=== PATIENT | male | born 1960 | race Caucasian/White ===

== ENCOUNTER 2022-01-01 08:56 | Outpatient (CLI) | payer OTHER, SELFPAY ==
[2022-01-01 14:18] LABS: Chloride* 101 mmol/L (96-114); Potassium* 4.5 mmol/L (3.6-5.1); Sodium* 138 mmol/L (135-149)
[2022-01-01 14:20] LABS: Cholesterol* 191 mg/dL (90-199)
[2022-01-01 14:21] LABS: Blood Urea Nitrogen* 20 mg/dL (7-30); Carbon Dioxide* 29 mmol/L (20-32); Creatinine* 0.8 mg/dL (0.5-1.5); Estimated Glomerular Filt Rate 101 ml/min; Glucose* 109 mg/dL (60-115); Triglycerides* 66 mg/dL (40-149)
[2022-01-01 14:22] LABS: Calcium* 9.2 mg/dL (8.4-10.6); HDL Cholesterol* 47 mg/dL (>=40); LDL Cholesterol Calculated 131 mg/dL (<100)
[2022-01-01 15:44] LABS: PSA Screen* 1.04 ng/mL (0.10-4.00)
== END 2022-01-01 08:57 | disposition home or self-care (01) ==
PROVIDERS: PCP Emergency Medicine; Visit Provider Emergency Medicine
DX: Z00.00 Encounter for general adult medical examination without abnormal findings (principal); R73.03 Prediabetes; R05.9 Cough, unspecified; Z12.5 Encounter for screening for malignant neoplasm of prostate; Z13.6 Encounter for screening for cardiovascular disorders
CPT/HCPCS: 80048; 80061; 84153

== ENCOUNTER 2022-02-09 09:23 | Outpatient (CLI) | payer OTHER, SELFPAY ==
--- NOTE | 2022-02-09 10:55 | W.ANESCHARGE ---
Anesthesia Charges Start Date/Time Anesthesia Start Date: 02/09/22 Anesthesia Start Time: 10:10 Stop Date/Time Anesthesia Stop Date: 02/09/22 Anesthesia Stop Time: 10:50 Summary Emergency: No
--- NOTE | 2022-02-09 10:56 | W.ANESCHARGE ---
Anesthesia Charges Start Date/Time Anesthesia Start Date: 02/09/22 Anesthesia Start Time: 10:10 Stop Date/Time Anesthesia Stop Date: 02/09/22 Anesthesia Stop Time: 10:50 Summary Emergency: No
== END 2022-02-09 09:24 | disposition home or self-care (01) ==
LOC: OP CLINIC 09:24
PROVIDERS: PCP Emergency Medicine; Visit Provider Surgery
DX: Z12.11 Encounter for screening for malignant neoplasm of colon (principal); K63.5 Polyp of colon; K57.30 Diverticulosis of large intestine without perforation or abscess without bleeding
CPT/HCPCS: 00811; 45385; 88305; J2704

== ENCOUNTER 2022-05-27 15:12 | Outpatient (RCR) | payer OTHER, SELFPAY | END 2022-12-30 14:02 | disposition home or self-care (01) | PROVIDERS: PCP Emergency Medicine; Visit Provider Physician Assistant Surgical | DX: M70.61 Trochanteric bursitis, right hip (principal); Z51.89 Encounter for other specified aftercare | CPT/HCPCS: 97110; 97161 ==

== ENCOUNTER 2023-03-17 16:15 | Outpatient (RCR) | payer OTHER, SELFPAY | END 2023-04-26 17:20 | disposition home or self-care (01) | PROVIDERS: PCP Emergency Medicine; Visit Provider Orthopaedic Surgery | DX: M67.912 Unspecified disorder of synovium and tendon, left shoulder (principal); S42.022A Displaced fracture of shaft of left clavicle, initial encounter for closed fracture; Z51.89 Encounter for other specified aftercare | CPT/HCPCS: 97110; 97140; 97162 ==

== ENCOUNTER 2023-05-10 13:11 | Outpatient (CLI) | payer OTHER, SELFPAY | END 2023-05-10 13:12 | disposition home or self-care (01) | LOC: FRMREF 13:13 | PROVIDERS: PCP Emergency Medicine; Visit Provider Family Medicine | DX: Z01.818 Encounter for other preprocedural examination (principal) | CPT/HCPCS: 80053 ==

== ENCOUNTER 2023-05-14 07:08 | Day surgery (SDC) | payer OTHER, SELFPAY ==
[2023-05-14] VITALS (16 sets, daily range): BP systolic 122–157; BP diastolic 66–108; PULSE 56–99; RESP 14–20; TEMP 36.1–37.1; O2SAT 90–95; BMI 33.2
[2023-05-14] MEDS: MIDAZOLAM HCL 1 MG/ML inj IVP (07:34)
--- NOTE | 2023-05-14 07:39 | W.PM.H&PU ---
History & Physical Update History & Physical Update H&P Reviewed and patient assessed: No changes noted
[2023-05-14] MEDS: LACTATED RINGERS 1000 ML 1,000 ML 100 ML IV ×2 (08:10→11:35)
[2023-05-14] MEDS: SODIUM CHLORIDE 0.9 % (FLUSH) 10 ML SYRINGE IVF (08:10)
[2023-05-14] MEDS: fentaNYL 100 MCG/2 ML inj IVP (09:50)
--- NOTE | 2023-05-14 09:59 | SUR.PREOP ---
TIME?OUT:?left shoulder, 0945 PT/RN/MDA?VERIFICATION?OF?SURGICAL?SITE,?PROCEDURE,?AND?CONSENT OBTAINED?PRIOR?TO?INVASIVE?PROCEDURE.
[2023-05-14] MEDS: CEFAZOLIN 2 GM INJ IVP (10:35)
[2023-05-14] MEDS: EPINEPHrine 1 MG in SODIUM CHLORIDE IRRIG SOLUTION 3,000 ML 9003 MG IRRIGATION ×6 (10:53→12:32)
--- NOTE | 2023-05-14 10:58 | W.ANESCHARGE ---
Anesthesia Charges Start Date/Time Anesthesia Start Date: 05/14/23 Anesthesia Start Time: 10:20 Stop Date/Time Anesthesia Stop Date: 05/14/23
--- NOTE | 2023-05-14 11:50 | W.PM.NB ---
Nerve Block Nerve Block Time Seen by Provider: 09:58 Date Seen: 05/14/23 Type of block requested by surgeon for post-operative analgesia: supraclavicular Side: left Time out performed: Yes Verification of patient name: Yes Verification of date of : Yes Site marking: site marked Name of person performing procedure: Moses Assistants, if any: Sue Continuous monitoring Was continuous monitoring of O2 sat, B/P, environmental monitoring specialist, recorded every 15 minutes?: Yes Procedure Checklist: sterile prep, needles and gloves Ultrasound guided. Images saved: Yes Medications given in 5ml increments after negative aspiration: Ropivicaine %: 0.5 mL: 20 Needle gauge: 22 Decadron (mg): 10 Precedex (mcg): 25 Patient tolerated procedure well: Yes Block Charges Block Charge (with Pro Fee): Brachial Plexus Use of Ultrasound Machine for Block: Yes- US Guidance/pain block
--- NOTE | 2023-05-14 11:51 | W.ANESCHARGE ---
Anesthesia Charges Start Date/Time Anesthesia Start Date: 05/14/23 Anesthesia Start Time: 10:20 Stop Date/Time Anesthesia Stop Date: 05/14/23 Anesthesia Stop Time: 13:04
--- NOTE | 2023-05-14 12:54 | P.ORPRC_ITS ---
Procedure Note Date of procedure: 05/14/23 Procedure: PREOPERATIVE DIAGNOSES: 1. Left shoulder rotator cuff tear. 2. Left shoulder subacromial impingement syndrome. 3. 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 Left shoulder rotator cuff tear - supraspinatus and upper subscapularis 2. Left shoulder subacromial impingement syndrome. 3. 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 Left shoulder arthroscopic rotator cuff repair. 2. Left shoulder arthroscopic bursectomy, subacromial decompression/partial acromioplasty. 3. Limited glenohumeral debridement SURGEON: Cezar Jolley MD FILLETER: Debbie Martínez P.A.-C. An hospital nursing assistant was critical for this case to aide in patient positioning, suture manipulation, arm positioning, instrument positioning, and closure. ANESTHESIA: General plus preoperative supraclavicular block. IMPLANTS: Arthrex 2.6 mm FiberTak anchor; Arthrex 2.6 mm knotless FiberTak anchor; Arthrex 4.75 mm BioComposite SwiveLock anchor COMPLICATIONS: None ESTIMATED BLOOD LOSS: 10 mL INDICATIONS: The patient is a pleasant, 62-year-old male who has experienced left shoulder pain and weakness that has not improved with conservative treatment. Physical exam and imaging were consistent with a rotator cuff tear. Given these findings, as well as the weakness and pain, and failure to improve with nonoperative management, recommendation was made for surgery. FINDINGS: Diagnostic arthroscopy revealed healthy chondral surfaces of the glenohumeral joint. There was a chronic tear of the long head of the biceps tendon and long head of biceps tendon was not visualized in the joint. Mild degenerative fraying of the anterior and superior labrum. There was a near full-thickness tear of the upper aspect of the subscapularis tendon, which was not retracted. There was also full-thickness tear involving the anterior supraspinatus was measured 1.5 cm in anterior to posterior direction that was not retracted. No loose bodies were identified within the pouch or subscapularis recess. PROCEDURE: Patient was seen preoperatively and operative site was marked. A supraclavicular nerve block was performed by anesthesia staff in preop holding. The patient was brought to the operating room and placed supine on the operating table. Induction of anesthesia was completed, and patient was given IV Ancef preoperatively for prophylaxis. Patient was then rotated the beach chair posi tion. Head was placed in a padded circular head saw operator and all bony prominences were well padded. The operative shoulder and upper extremity were prepped and draped in the appropriate sterile fashion using ChloraPrep. Surgical time-out was performed confirming patient identity surgical site surgical procedure. The glenohumeral joint was injected with 40 mL of normal saline using and 18g spinal needle from a posterior approach. Anterior, posterior, lateral, and anterior superior portal sites were injected with 1% lidocaine with epinephrine. Posterior portal was established. Anterior portal was established after localization with a spinal needle and a 7.0 mm cannula was placed here. Diagnostic arthroscopy was then performed with findings as noted above. Shaver was inserted and anterior superior labrum were debrided. After debridement labrum was confirmed to be stable. Attention was then directed to the subscapularis where there was an full-thickness non retracted tear of the upper subscapularis. Anterior superior lateral portal was established and a 7.0 mm cannula was placed here. The footprint of the upper subscapularis was debrided of soft tissue and lightly decorticated using the bone-cutting shaver. A 2.6 mm self punching FiberTak anchor was then placed in the. medial aspect of the subscapularis footprint. One suture set was then passed through the upper subscapularis and tied, completing repair the subscapularis. Cam was then placed in the subacromial space. A lateral portal was established after localization with spinal needle. Subacromial bursectomy and partial acromioplasty was performed using combination of radiofrequency ablator and the bone cutting shaver. A passport cannula was placed in the lateral portal. Attention was then directed to repair of the anterior supraspinatus tear. Margins of the tear were debrided and footprint was cleared of soft tissue. Footprint was lightly decorticated using the bone-cutting shaver. All stab incision was then placed off the lateral acromion through which a knotless 2.6 mm FiberTak anchor was placed in the anterior medial supraspinatus footprint. Using the [employer] suture Passer, sutures were passed through the anterior supraspinatus tendon lateral to the musculotendinous junction. Medial row repair was performed using the knotless sutures. Next, the 2 sutures tapes that had been passed independently through the tendon were brought laterally and secured with a 4.75 mm BioComposite SwiveLock anchor. Remnant sutures were then cut and removed. The shoulder was placed through range of motion, and rotator cuff was noted to be secured back to its footprint and confirmed to be stable. Arthroscopic instruments and cannulas were removed. Excess fluid was drained, closure performed with 3-0 nylon simple interrupted sutures. Sterile dressings were applied, and arm was placed into the abduction sling. The patient was awoken from anesthesia and transferred to the PACU in stable condition. PLAN: 1. Discharged to home day of surgery. 2. Ice/cryocuff for pain and swelling. 3. Tylenol and oxycodone as needed for pain control. 4. Abduction sling at all times except for ROM and showering. -Remove sling several times daily for pendulum exercises finger, wrist, and elbow range of motion. 5. Follow-up in orthopedic clinic in 10-14 days for wound check and suture removal. 6. Will initiate formal physical therapy 2 weeks postoperatively per the standard rotator cuff repair protocol.
--- NOTE | 2023-05-14 13:10 | W.ANESCHARGE ---
Anesthesia Charges Start Date/Time Anesthesia Start Date: 05/14/23 Anesthesia Start Time: 10:20 Stop Date/Time Anesthesia Stop Date: 05/14/23 Anesthesia Stop Time: 13:04
--- NOTE | 2023-05-14 13:55 | SUR.PHASEII ---
Pt tolerated water, grape juice, and toast.
== END 2023-05-14 15:10 | disposition home or self-care (01) ==
PROVIDERS: PCP Emergency Medicine; Visit Provider Orthopaedic Surgery
PROC: (CPT 29805; principal; 2023-05-14 09:45)
DX: M75.102 Unspecified rotator cuff tear or rupture of left shoulder, not specified as traumatic (principal); M75.42 Impingement syndrome of left shoulder; G89.18 Other acute postprocedural pain; S46.212A Strain of muscle, fascia and tendon of other parts of biceps, left arm, initial encounter
CPT/HCPCS: 29827; 29826; 29822; 01630; 64415; 76942; C1713; J0171; J0330; J0690; J1100; J1170; J2250; J2405; J2704; J2795; J3010; J7120; L3670

== ENCOUNTER 2023-10-06 09:00 | Outpatient (RCR) | payer OTHER, SELFPAY ==
--- NOTE | 2023-07-28 10:03 | PT.OPDN ---
PT Jose Outpatient Daily Note PT [facility]IN Outpatient Daily Note Start: 03/24/23 16:15 Freq: Status: Active Protocol: Document 07/28/23 09:00 LSL (Rec: 07/28/23 10:03 LSL [id number]) E-signed By Celi Thomas, PT PT OP Daily Progress Note Visit Information Note Type Daily Note,Recert/Progress Note Visit Number 11 Insurance Authorized Visits 12 Physician Authorized Visits eval & treat Insurance Information Insurance Name [employer] Insurance Information/Comments [facility] Medical Diagnosis L RCR Treating Diagnosis pain, weakness, impaired ROM Referring MD Jolley Subjective Subjective Pt. reports his shoulder was actually really sore last night and he had a difficult time sleeping. Preferred Name Pat Precautions Treatment Precautions/Contraindications rib and clavicle fracture Home Exercise Home Exercise Comments [employer]: [id number] scaption, shoulder flexion, hor abduction prone, ER TB, IR TB Objective Other/Pertinent Objective AROM - flexion 136, abduction 108, ER 64, IR L4 PROM - flexion 170, abduction 161, ER 72, IR WNL STRENGTH - bicep and tricep 5/ 5, IR 5/5, ER 4+/5, abduction 5/5, horizontal abd 5/5, horizontal adduction 5/5, supraspinatus 4-/5 Patient Instructed in Risks/Benefits Yes Therapeutic Exercise Therapeutic Exercise Minutes (minutes) 37 Therapeutic Exercise: To Restore -UBE alt 4', L5 Functional Status -standing 3# bar lift 2x10 -scaption 2# 3x10 -row 12.5# 3x10 -shoulder extension 7.5# 3x10 -GTB IR 3x10 -GTB ER 3x10 -IR abducted GTB 2x10 -prone on elbows RTB ER 10x 5 sec -prone hor abd 2# 2x10 -green loop pulses with shoulder flexion 2x5 -L shoulder stabilization bow pulls green loop 2x10 -prone Y 10x Manual Therapy Techniques Manual Therapy Minutes (minutes) 12 Manual Therapy Techniques Skilled multiplanar PROM with measurements for PN Treatment Minutes Timed Code Treatment Minutes 49 Total Treatment Time 49 Billing Units Manual Therapy Units 1 Therapeutic Exercise Units 2 Assessment/Impression Assessment/Impression Pt. continues to make gradual ROM and strength gains. He is now ready to continue into more progressive and dynamic strength and stabilization to meet the demands of returning to his work. Requesting an additional 12 sessions to work toward his RTW goals. Plan of Care Physical Therapy Goals SHORT TERM GOALS: (6 weeks) 1. Pt. to have 75% or greater AROM (MET) 2. Pt. to have full PROM. ( making progress) 3. Pt. able to complete dynamic scapular stabilization . (MET) BAR TACKER GOALS: (12 weeks) 1. Shoulder strength to 5/5 to allow RTW. 2. Pt. able to pull 50 pounds from high to low. 3. Pt. to have full abduction and ER range with pain less than 2/10 to allow him to reach for seat belt. 4. Pt. able to lean on L arm for extended periods of time to clean out cement drum with pain less than 3/10. Daily Plan of Care Continue per POC Daily Plan of Care Comments Ongoing POC to consist of therex, NM re-ed, manual therapy, modalities prn Recertification Information Initial Certification Date 06/24/23 Recertification Start Date 08/05/23 Recertification Due Date 09/16/23 Reasons to Continue Skilled Therapy lacking end of range passively and actively, weakness in new range, impaired proprioception Rehabilitation Potential Excellent Continued Plan of Care and Interventions therex, manual therapy, Provider Signature Shows Agreement With POC & Medical Necessity Physician Comment/Change Comment or Changes
== END 2023-12-14 13:41 | disposition home or self-care (01) ==
PROVIDERS: PCP Emergency Medicine; Visit Provider Orthopaedic Surgery
DX: M67.912 Unspecified disorder of synovium and tendon, left shoulder (principal); Z51.89 Encounter for other specified aftercare
CPT/HCPCS: 97032; 97110; 97112; 97140; 97162; 97164